=== PATIENT | female | born 1980 | race Caucasian/White ===

== ENCOUNTER 2022-03-17 13:01 | Emergency (ER) | payer MEDICAID, SELFPAY ==
[2022-03-17 13:02] VITALS: BP 155/92; PULSE 122; RESP 18; TEMP 36.8; O2SAT 95
--- NOTE | 2022-03-17 13:29 | W.ED.ALCOHOL ---
HPI - Alcohol General: Chief Complaint: Alcohol Stated Complaint: Possible seizure/ETOH withdrawal Time Seen by Provider: 03/17/22 13:10 Source: patient Mode of arrival: EMS Limitations: no limitations History of Present Illness: Patient was transported to our emergency department via EMS from her home. Has been dealing with a spouse who is on hospice and in the last 24 hours. As part of this process of dealing with his impending she has not slept for the past approximately 3 days. She is also a chronic daily alcohol user and does not drink any alcohol for least 24 hours. He states that this morning she just felt overwhelming stress and grief and felt like she needed to go to sleep. Allegedly she was observed to have a shaking episode by family members who became concerned and called EMS. She is aware that she became very sleepy and tired. There was no complaint of or history of loss of bowel or bladder control or intraoral trauma or apnea or preepisode syncope. She states she is never had seizures. She states she is gone through some shakiness with stopping drinking in the past but never had any significant withdrawal symptoms. He states she has been drinking on a continuous daily basis for at least 1 year this episode. She denies any pain or discomfort at this time. She states that she does not take any daily medication other than occasional ibuprofen. She does smoke tobacco. She denies any recent illness fevers chills etc. She has been living with her spouse and her 2 adult children have just recently moved back home who witnessed the episode this morning. She denies other drug use. Denies thoughts of harm to herself or others currently. Her desires to go home. She states that she has been relatively successful in the past and discontinuing drinking on her own with relapses. MD complaint: alcohol withdrawal and alcohol dependence Chronic alcohol use: Yes Recent trauma: No Associated symptoms: Reports seizure-like activity; Deny abdominal pain, nausea, suicidal ideation, syncope or vomiting Review of Systems Const: Denies: fever(s), chills or body aches Eyes: Denies: change in vision ENMT: Denies: throat pain or odynophagia Card: Denies: chest pain, palpitations, syncope or pre-syncope Resp: Denies: dyspnea, productive cough or non-productive cough GI: Denies: abdominal pain, nausea, vomiting or diarrhea : Denies: flank pain, difficulty voiding, dysuria or urinary frequency Musc: Denies: neck pain, back pain, extremity pain or extremity swelling Skin/Breast: Denies: rash or pruritus Neuro: Reports: seizure-like activity; Denies: headache(s), numbness in extremities or weakness in extremities Psych: Reports: sleeping less; Denies: visual hallucinations, auditory hallucinations, suicidal ideation or homicidal ideation Endo: Denies: polyuria or polydipsia Physical Exam Narrative: EXAM NARRATIVE: Patient is alert and interactive and appropriate fashion. Speech is goal-directed. Const: COMMON NORMALS: no acute distress, average body habitus, patient oriented x3 and no limitations GENERAL APPEARANCE: cooperative and comfortable HENMT: COMMON NORMALS: normocephalic, atraumatic, Normal external nose present, Normal nasal mucous membranes and turbinates present, moist oral mucous membranes and oropharynx normal (No evidence of trauma) HEAD & SCALP: normocephalic and atraumatic NOSE: Normal external nose present and Normal nasal mucous membranes and turbinates present Eye: COMMON NORMALS: Equal, round and reactive pupils present, EOMs intact bilaterally, conjunctivae normal and no scleral icterus CONJUNCTIVA: Yes conjunctivae normal PUPIL: Yes Equal, round and reactive pupils present Neck/C-Spine: COMMON NORMALS: full ROM, no lymphadenopathy, supple and No carotid bruits Chest: COMMONS NORMALS: normal inspection of the chest Resp: COMMON NORMALS: normal respiratory effort, No retractions and clear to auscultation bilaterally AUSCULTATION: clear to auscultation bilaterally Cardio: COMMON NORMALS: regular rate, regular rhythm, No murmurs present (Cardio) and Peripheral pulses 2+ throughout RATE: regular rate and tachycardic RHYTHM: regular rhythm PERIPHERAL PULSES: Peripheral pulses 2+ throughout GI: COMMON NORMALS: Normal to inspection, nondistended, normoactive bowel sounds present, Soft to palpation and non-tender PALPATION: Yes Soft to palpation : COMMON NORMALS: Yes no CVA tenderness BLADDER/KIDNEY EXAM: Yes no CVA tenderness Back/Pelvis: COMMON NORMALS: no CVA tenderness, thoracic and lumbar spine normal to inspection, no thoracic nor lumbar tenderness, thoraco-lumbar ROM normal and straight leg raise negative bilaterally Extremity: COMMON NORMALS: normal to inspection, capillary refill normal, no joint enlargement and no calf tenderness Neuro: COMMON NORMALS: patient oriented x3, moves all extremities, no focal motor deficits and no sensory deficits noted SPEECH: speech normal Psych: COMMON NORMALS: mental status grossly normal, Normal thought process present, cooperative, speech normal, denies hallucinations, denies homicidal ideation and denies suicidal ideation SPEECH: Yes normal speech THOUGHT PROCESS: Normal thought process present ATTENTION/CONCENTRATION: Yes attention grossly intact INSIGHT: Good insight present (Psych) Skin: COMMON NORMALS: no rashes or lesions noted, no wounds and turgor normal GENERAL SKIN EXAM: no rashes or lesions noted and turgor normal Course Reevaluation(s): Reevaluation #1: She remained stable. Normal vital signs. Her potassium has been repleted. She is alert awake and desires to be discharged home. She has 2 adult children who are living with her currently. She has plans to continue with her discontinuation of alcohol. I have offered her a course of Librium to help with any of her withdrawal issues and she agreed to that plan. Again she has no thoughts of self-harm or harm to others. Currently clinically stable to be discharged to the care of the family. Return precautions were discussed. Vital Signs: Vital signs: Vital Signs Temperature 98.2 F 03/17/22 13:02 Pulse Rate 122 H 03/17/22 13:02 Respiratory Rate 18 03/17/22 13:02 Blood Pressure 155/92 03/17/22 13:02 Pulse Oximetry 95 03/17/22 13:02 Oxygen Delivery Me thod 03/17/22 13:02 MDM - Alcohol Medical Decision Making Patient with history of heavy alcohol use who presented to the emergency department after sleep deprivation, alcohol discontinuation and the recent loss of her . Concern was that she may have suffered a withdrawal seizure however this is unclear at this time. However she is remained clinically stable other than a borderline low potassium which was repleted in the emergency department. She is being discharged in a stable condition to care of family with a course of Librium to help with her withdrawal symptoms. Emergency medical evaluation complete no ongoing emergency medical condition. Medical Records I reviewed the patient's medical records. Lab Data I reviewed the patient's lab results. : 03/17/22 13:30 03/17/22 13:30 Laboratory Results WBC 6.0 10^3/uL (4.0-10.0) 03/17/22 13:30 RBC 3.95 10^6/uL (4.1-5.3) L 03/17/22 13:30 Hgb 13.0 g/dL (11.5-15.3) 03/17/22 13:30 Hct 39.2 % (37.0-47.0) 03/17/22 13:30 MCV 99.2 fl (81-99) H 03/17/22 13:30 MCH 32.9 pg (28.0-34.0) 03/17/22 13:30 MCHC 33.2 g/dL (30.0-36.0) 03/17/22 13:30 RDW 15.7 % (12.1-15.1) H 03/17/22 13:30 Plt Count 130 10^3/cmm (130-400) 03/17/22 13:30 MPV 10.3 fL (7.4-10.4) 03/17/22 13:30 Neut % (Auto) 81.8 % 03/17/22 13:30 Lymph % (Auto) 8.0 % 03/17/22 13:30 Chambers % (Auto) 6.2 % 03/17/22 13:30 Eos % (Auto) 2.7 % 03/17/22 13:30 Baso % (Auto) 0.8 % 03/17/22 13:30 Neut # (Auto) 4.88 10^3/uL (1.8-7.7) 03/17/22 13:30 Lymph # (Auto) 0.5 10^3/uL (0.8-4.8) L 03/17/22 13:30 Chambers # (Auto) 0.4 10^3/uL (0.2-0.9) 03/17/22 13:30 Eos # (Auto) 0.2 10^3/uL (0.0-0.8) 03/17/22 13:30 Baso # (Auto) 0.1 10^3/uL (0.0-0.1) 03/17/22 13:30 Nucleated RBC % (auto) 0 % 03/17/22 13:30 Nucleated RBCs # 0.0 /100WBC 03/17/22 13:30 Sodium 134 mmol/L (136-145) L 03/17/22 13:30 Potassium 3.1 mmol/L (3.5-5.1) L 03/17/22 13:30 Chloride 95 mmol/L (98-107) L 03/17/22 13:30 Carbon Dioxide 20 mmol/L (22-29) L 03/17/22 13:30 Anion Gap 22.1 (5-19) H 03/17/22 13:30 BUN 5 mg/dL (6-20) L 03/17/22 13:30 Creatinine 0.5 mg/dL (0.5-0.9) 03/17/22 13:30 GFR Calculation 136.0 mL/min (90-130) H 03/17/22 13:30 Glucose 97 mg/dL (65-115) 03/17/22 13:30 Calculated Osmolality 275 mOsm/kg (285-295) L 03/17/22 13:30 Calcium 9.8 mg/dL (8.5-10.5) 03/17/22 13:30 Total Bilirubin 2.4 mg/dL (0.15-1.2) H 03/17/22 13:30 AST 140 U/L (0-32) H 03/17/22 13:30 ALT 68 U/L (0-33) H 03/17/22 13:30 Alkaline Phosphatase 155 U/L (35-105) H 03/17/22 13:30 Total Protein 7.5 g/dL (6.6-8.7) 03/17/22 13:30 Albumin 4.3 g/dL (3.5-5.2) 03/17/22 13:30 Globulin 3.2 g/dL (1.3-4.6) 03/17/22 13:30 Ethyl Alcohol < 10 mg/dL (0-10) 03/17/22 13:30 EKG Data EKG 1: I personally reviewed and interpreted this EKG as follows: Interpretation: Electrocardiogram reveals a ventricular rate of 75 bpm. Normal intervals, normal axis, no acute ST-T wave changes noted. Discharge Plan Discharge Patient Disposition: Home Clinical Impression: Alcohol withdrawal syndrome, Hypokalemia Condition: Stable Prescriptions: New chlordiazepoxide HCl 25 mg capsule 25 mg PO Q6H 5 Days Qty: 20 0RF Discharge Orders: Discharge ED (Routine); Ordered 03/17/22 Ordered By: David Chavarria Discharge Diet: Usual diet Discharge Activity: Increase activity as tolerated Patient Instructions: Alcohol Withdrawal (ED), Opioid Safety, Pain Management Activity Restrictions/Additional Instructions: Do not drink alcohol. Drink at least 2 quarts of water or other sports drinks etc. daily. Take the medications we have prescribed to help with your withdrawal symptoms over the next 5 days. If you have any new, worsening, or other concerning symptoms or problems return to the emergency department immediately. Coding Level of Care Code ED [employer] Monitoring Technician for Ketan Swift Exam Comprehensive
--- NOTE | 2022-03-17 13:38 | ECG_ITS ---
[facility] Test Date: 2022-03-17 Pat Name: Rosalva Neil Department: Room: Gender: Female Video Specialist: : 1980 Requested By: David Chavarria Order Number: [id number] Loya MD: Kiley Wooten M.D. Measurements Intervals [place] Rate: 75 P: 32 IN: 124 QRS: 59 QRSD: 84 T: 45 QT: 408 QTc: 457 Interpretive Statements SINUS RHYTHM No previous ECG available for comparison Electronically Signed On 03-18-2022 5:52:41 CDT by Kiley Wooten M.D. [email or web address]
[2022-03-17 13:45] LABS: Basophils # 0.1 10^3/uL (0.0-0.1); Basophils % 0.8 %; Eosinophils # 0.2 10^3/uL (0.0-0.8); Eosinophils % 2.7 %; Hematocrit 39.2 % (37.0-47.0); Lymphocytes # 0.5 10^3/uL (0.8-4.8); Mean Corpuscular HGB Conc 33.2 g/dL (30.0-36.0); Mean Corpuscular Hemoglobin 32.9 pg (28.0-34.0); Mean Corpuscular Volume 99.2 fl (81-99); Mean Platelet Volume 10.3 fL (7.4-10.4); Monocytes # 0.4 10^3/uL (0.2-0.9); Monocytes % 6.2 %; Neutrophils # 4.88 10^3/uL (1.8-7.7); Neutrophils % 81.8 %; Nucleated Red Blood Cells % 0 %; Platelet Count 130 10^3/cmm (130-400); Red Blood Count 3.95 10^6/uL (4.1-5.3); Red Cell Distribution Width 15.7 % (12.1-15.1)
[2022-03-17] MEDS: sodium chloride 0.9% 1,000 ML 999 ML IV (13:57)
[2022-03-17] MEDS: chlordiazePOXIDE 25 mg Capsule 50 MG PO (13:57)
[2022-03-17 13:58] LABS: Alanine Aminotransferase 68 U/L (0-33); Albumin Level 4.3 g/dL (3.5-5.2); Alkaline Phosphatase 155 U/L (35-105); Aspartate Amino Transferase 140 U/L (0-32); Blood Urea Nitrogen 5 mg/dL (6-20); Calcium 9.8 mg/dL (8.5-10.5); Carbon Dioxide 20 mmol/L (22-29); Chloride 95 mmol/L (98-107); Globulin 3.2 g/dL (1.3-4.6); Glucose 97 mg/dL (65-115); Osmolality Calculated 275 mOsm/kg (285-295); Sodium 134 mmol/L (136-145); Total Bilirubin 2.4 mg/dL (0.15-1.2); Total Protein 7.5 g/dL (6.6-8.7)
[2022-03-17 14:00] VITALS: BP 130/86; PULSE 95; RESP 16; O2SAT 94
[2022-03-17 14:06] LABS: Alcohol Level < 10 mg/dL (0-10); Anion Gap 22.1 (5-19); Potassium 3.1 mmol/L (3.5-5.1)
[2022-03-17 15:00] VITALS: BP 127/81; PULSE 84; RESP 16; O2SAT 95
[2022-03-17] MEDS: potassium bicarb 25 mEq Tablet 50 MEQ PO (15:16)
[2022-03-17 16:00] VITALS: BP 154/98; PULSE 82; RESP 16; O2SAT 96
== END 2022-03-17 16:36 | disposition home or self-care (01) ==
PROVIDERS: Emergency Provider Emergency Medicine
DX: F10.239 Alcohol dependence with withdrawal, unspecified (principal); E87.6 Hypokalemia
CPT/HCPCS: 80053; 80307; 85025; 93005; 96360; 99285; J7030

== ENCOUNTER 2022-03-20 01:20 | Inpatient (IN) | payer OTHER, SELFPAY ==
[2022-03-20] VITALS (7 sets, daily range): BP systolic 134–143; BP diastolic 71–99; PULSE 87–110; RESP 15–18; TEMP 36.4–36.8; O2SAT 93–98; BMI 24.9; BMI 25.0
--- NOTE | 2022-03-20 01:41 | CTR_ITS ---
PROCEDURE INFORMATION: Exam: CT Head Without Contrast Exam date and time: 03/20/2022 2:07 AM Age: 41 years old Clinical indication: Dizziness and other: Visual disturbances, paranoia; Additional info: AMS TECHNIQUE: Imaging protocol: Computed tomography of the head without contrast. Radiation optimization: All CT scans at this facility use at least one of these dose optimization techniques: automated exposure control; mA and/or kV adjustment per patient size (includes targeted exams where dose is matched to clinical indication); or iterative reconstruction. COMPARISON: No relevant prior studies available. RADIATION DOSE METRICS: Total DLP (mGy-cm): 1230.84 FINDINGS: Brain: Mildly prominent brain sulci seen, which is advanced for the patient's age. There are no intracranial masses, mass effect or midline shift. There is no cerebral edema. There is no subarachnoid hemorrhage. There are no intra-or extra-axial fluid collections, intraventricular or intraparenchymal hemorrhage. No definite areas of low attenuation or avila-white matter junction obscuration seen on the noncontrast CT to suggest a subacute stroke. Cerebral ventricles: The lateral, third and fourth ventricles appear unremarkable. The suprasellar and basilar cisterns appear unremarkable. Paranasal sinuses: [id number] right maxillary sinus mucosal thickening is seen, consistent with sinus disease. Mild rightward deviation of the midline nasal septum is seen. Mastoid air cells: The visualized mastoids are unremarkable. Orbital cavities: The visualized orbits are unremarkable. Bones/joints: No definite acute osseous or skull abnormalities seen. Soft tissues: Unremarkable. Notes: If there is further clinical concern for intracranial pathology, MRI of the brain may be performed for further assessment. CT/CT head wo con* [id number] IMPRESSION: No acute intracranial abnormality seen on the noncontrast CT.
--- NOTE | 2022-03-20 02:21 | ED.C_ITS ---
Documented by User: Archie Marie MD 03/23/22 18:56 HPI - Psych General: Chief Complaint: Psychiatric Symptoms Stated Complaint: MHE, seeing things Time Seen by Provider: 03/20/22 01:47 Source: patient and family Mode of arrival: ambulatory Limitations: no limitations History of Present Illness: 41-year-old female states that over the last 2 to 3 days she has been having hallucinations feeling extremely paranoid. She states she feels like people been following her and she has been seeing things in the shadows. She has been under a lot of stress recently her re cently . She is has a history of alcoholism states she has not had a drink in 4 to 5 days. She denies any suicidal or homicidal ideations. Associated symptoms: Reports visual hallucinations Review of Systems Const: Denies: fever(s), chills, body aches or change in appetite Eyes: Denies: blurry vision or eye discomfort ENMT: Denies: throat pain or dental pain Card: Denies: chest pain Resp: Denies: dyspnea GI: Denies: abdominal pain, nausea, vomiting or diarrhea : Denies: dysuria Musc: Denies: neck pain or back pain Skin/Breast: Denies: rash Neuro: Denies: headache(s) Psych: Reports: paranoia and visual hallucinations Wilman/Lymph: Denies: easy bruising All/Imm: Denies: urticaria PFSH ED PFSH: Medical History Alcohol abuse Social History (Updated 03/20/22 @ 02:22 by Archie Marie MD) Alcohol intake: current Physical Exam Const: COMMON NORMALS: patient oriented x3 HENMT: COMMON NORMALS: normocephalic and atraumatic HEAD & SCALP: normocephalic and atraumatic Eye: COMMON NORMALS: Equal, round and reactive pupils present and EOMs intact bilaterally PUPIL: Yes Equal, round and reactive pupils present Neck/C-Spine: COMMON NORMALS: full ROM and supple Chest: COMMONS NORMALS: normal inspection of the chest and normal palpation of entire chest wall Resp: COMMON NORMALS: normal respiratory effort, No retractions, No use of accessory muscles and clear to auscultation bilaterally AUSCULTATION: clear to auscultation bilaterally Cardio: COMMON NORMALS: regular rate, regular rhythm and No murmurs present (Cardio) RATE: regular rate RHYTHM: regular rhythm GI: COMMON NORMALS: Normal to inspection, nondistended, normoactive bowel sounds present, Soft to palpation, non-tender and no masses PALPATION: Yes Soft to palpation Extremity: COMMON NORMALS: normal to inspection and full ROM Neuro: COMMON NORMALS: patient oriented x3, moves all extremities and no focal motor deficits Psych: COMMON NORMALS: mental status grossly normal and cooperative SPEECH: Yes rapid MOOD & AFFECT: Yes elevated mood THOUGHT CONTENT: Yes Hallucination(s) present Skin: COMMON NORMALS: no rashes or lesions noted and no wounds GENERAL SKIN EXAM: no rashes or lesions noted Course Vital Signs: Vital signs: Vital Signs Temperature 98.4 F 03/24/22 13:47 Pulse Rate 61 03/24/22 13:47 Respiratory Rate 14 03/24/22 13:47 Blood Pressure 135/87 03/24/22 13:47 Pulse Oximetry 91 03/24/22 13:47 Oxygen Delivery Me thod 03/24/22 06:00 MDM - Psych Medical Decision Making Patient presents here with acute psychosis patient placed on a 96-hour hold patient care turned over to Dr. Amin seeking placement. Lab Data : 03/20/22 02:18 03/20/22 02:[address] 03/20/22 01:41 IMPRESSION: No acute intracranial abnormality seen on the noncontrast CT. Laboratory Results WBC 5.2 10^3/uL (4.0-10.0) 03/20/22 02:18 RBC 3.59 10^6/uL (4.1-5.3) L 03/20/22 02:18 Hgb 12.0 g/dL (11.5-15.3) 03/20/22 02:18 Hct 36.1 % (37.0-47.0) L 03/20/22 02:18 MCV 100.6 fl (81-99) H 03/20/22 02:18 MCH 33.4 pg (28.0-34.0) 03/20/22 02:18 MCHC 33.2 g/dL (30.0-36.0) 03/20/22 02:18 RDW 15.1 % (12.1-15.1) 03/20/22 02:18 Plt Count 114 10^3/cmm (130-400) L 03/20/22 02:18 MPV 10.7 fL (7.4-10.4) H 03/20/22 02:18 Neut % (Auto) 67.6 % 03/20/22 02:18 Lymph % (Auto) 22.3 % 03/20/22 02:18 [place] % (Auto) 8.5 % 03/20/22 02:18 Eos % (Auto) 0.8 % 03/20/22 02:18 Baso % (Auto) 0.6 % 03/20/22 02:18 Neut # (Auto) 3.48 10^3/uL (1.8-7.7) 03/20/22 02:18 Lymph # (Auto) 1.2 10^3/uL (0.8-4.8) 03/20/22 02:18 [place] # (Auto) 0.4 10^3/uL (0.2-0.9) 03/20/22 02:18 Eos # (Auto) 0.0 10^3/uL (0.0-0.8) 03/20/22 02:18 Baso # (Auto) 0.0 10^3/uL (0.0-0.1) 03/20/22 02:18 Nucleated RBC % (auto) 0 % 03/20/22 02:18 Nucleated RBCs # 0.0 /100WBC 03/20/22 02:18 Sodium 139 mmol/L (136-145) 03/20/22 02:18 Potassium 3.1 mmol/L (3.5-5.1) L 03/20/22 02:18 Chloride 98 mmol/L (98-107) 03/20/22 02:18 Carbon Dioxide 24 mmol/L (22-29) 03/20/22 02:18 Anion Gap 20.1 (5-19) H 03/20/22 02:18 BUN 11 mg/dL (6-20) 03/20/22 02:18 Creatinine 0.5 mg/dL (0.5-0.9) 03/20/22 02:18 GFR Calculation 136.0 mL/min (90-130) H 03/20/22 02:18 Glucose 83 mg/dL (65-115) 03/20/22 02:18 Calculated Osmolality 287 mOsm/kg (285-295) 03/20/22 02:18 Calcium 10.1 mg/dL (8.5-10.5) 03/20/22 02:18 Total Bilirubin 1.2 mg/dL (0.15-1.2) 03/20/22 02:18 AST 135 U/L (0-32) H 03/20/22 02:18 ALT 82 U/L (0-33) H 03/20/22 02:18 Alkaline Phosphatase 131 U/L (35-105) H 03/20/22 02:18 Total Protein 7.6 g/dL (6.6-8.7) 03/20/22 02:18 Albumin 4.3 g/dL (3.5-5.2) 03/20/22 02:18 Globulin 3.3 g/dL (1.3-4.6) 03/20/22 02:18 TSH 2.29 uIU/mL (0.27-4.20) 03/20/22 02:18 HCG, Qual Negative (Negative) 03/20/22 11:07 Urine Color Dark yellow (Yellow) 03/20/22 06:42 Urine Appearance Cloudy (CLEAR) A 03/20/22 06:42 Urine pH 5 (5-7) 03/20/22 06:42 Ur Specific [place] 1.020 (1.005-1.030) 03/20/22 06:42 Urine Protein 1+ (Negative) H 03/20/22 06:42 Urine Glucose (UA) Norm (Normal) 03/20/22 06:42 Urine Ketones 3+ (Negative) H 03/20/22 06:42 Urine Blood 3+ (Negative) H 03/20/22 06:42 Urine Nitrate Positive (Negative) H 03/20/22 06:42 Urine Bilirubin 1+ (Negative) H 03/20/22 06:42 Urine Urobilinogen 4 mg/dL (Negative) H 03/20/22 06:42 Ur Leukocyte Esterase 1+ (Negative) H 03/20/22 06:42 Urine RBC 5-10 /hpf (0-2) H 03/20/22 06:42 Urine WBC 0-4 /hpf (0-5) H 03/20/22 06:42 Ur Squamous Epith Cells 5-10 /hpf (0-5) H 03/20/22 06:42 Calcium Oxalate Crystal 0-4 /hpf H 03/20/22 06:42 Amorphous Sediment Not Reportable 03/20/22 06:42 Urine Bacteria 3+ /hpf (NONE) H 03/20/22 06:42 Urine Mucus 2+ /hpf 03/20/22 06:42 Salicylates < 0.3 mg/dL (3-10) L 03/20/22 02:18 Urine Opiates Screen Negative ng/mL (Negative) 03/20/22 06:42 Acetaminophen < 5.0 ug/mL (10-30) L 03/20/22 02:18 Ur Barbiturates Screen Negative ng/mL (Negative) 03/20/22 06:42 Ur Phencyclidine Scrn Negative ng/mL (Negative) 03/20/22 06:42 Ur Amphetamines Screen Positive ng/mL (Negative) H 03/20/22 06:42 U Benzodiazepines Scrn Positive ng/mL (Negative) H 03/20/22 06:42 Urine Cocaine Screen Negative ng/mL (Negative) 03/20/22 06:42 U Marijuana (THC) Screen Negative ng/mL (Negative) 03/20/22 06:42 Ethyl Alcohol < 10 mg/dL (0-10) 03/20/22 02:18 SARS-CoV-2 Ag (Rapid) negative (Negative) 03/20/22 06:42 Discharge Plan Discharge Patient Disposition: Admitted As Inpatient Admit Provider: Mike Cisneros Clinical Impression: Acute psychosis Condition: Stable Discharge Diet: Advance as tolerated Discharge Activity: Resume usual activity Sign Out Sign Out Data: Patient Sign Out occurred on 03/20/22 at 06:06. Patient's care was discussed, and care was transferred from to Hernán Amin DO. Coding Level of Care Code ED Athletic Scout for Chg Fwd Exam Comprehensive Documented by User: Hernán Amin DO 03/31/22 07:18 HPI - Psych General: Chief Complaint: Psychiatric Symptoms Stated Complaint: MHE, seeing things Time Seen by Provider: 03/20/22 01:47 [facility] ED PFSH: Medical History Alcohol abuse Social History (Updated 03/20/22 @ 02:22 by Archie Marie MD) Alcohol intake: current Course Vital Signs: Vital signs: Vital Signs Temperature 98.4 F 03/24/22 13:47 Pulse Rate 61 03/24/22 13:47 Respiratory Rate 14 03/24/22 13:47 Blood Pressure 135/87 03/24/22 13:47 Pulse Oximetry 91 03/24/22 13:47 Oxygen Delivery Me thod 03/24/22 06:00 MDM - Psych Medical Decision Making Patient presents here with acute psychosis patient placed on a 96-hour hold patient care turned over to Dr. Amin seeking placement. Care assumed at change of shift. We were able to get a bed available at our facility for patient care discussed with Dr. Cisneros orders written patient admitted to our facility. Medical Records I reviewed the patient's medical records. Lab Data I reviewed the patient's lab results. : 03/20/22 02:18 03/20/22 02:[address] 03/20/22 01:41 IMPRESSION: No acute intracranial abnormality seen on the noncontrast CT. Laboratory Results WBC 5.2 10^3/uL (4.0-10.0) 03/20/22 02:18 RBC 3.59 10^6/uL (4.1-5.3) L 03/20/22 02:18 Hgb 12.0 g/dL (11.5-15.3) 03/20/22 02:18 Hct 36.1 % (37.0-47.0) L 03/20/22 02:18 MCV 100.6 fl (81-99) H 03/20/22 02:18 MCH 33.4 pg (28.0-34.0) 03/20/22 02:18 MCHC 33.2 g/dL (30.0-36.0) 03/20/22 02:18 RDW 15.1 % (12.1-15.1) 03/20/22 02:18 Plt Count 114 10^3/cmm (130-400) L 03/20/22 02:18 MPV 10.7 fL (7.4-10.4) H 03/20/22 02:18 Neut % (Auto) 67.6 % 03/20/22 02:18 Lymph % (Auto) 22.3 % 03/20/22 02:18 [place] % (Auto) 8.5 % 03/20/22 02:18 Eos % (Auto) 0.8 % 03/20/22 02:18 Baso % (Auto) 0.6 % 03/20/22 02:18 Neut # (Auto) 3.48 10^3/uL (1.8-7.7) 03/20/22 02:18 Lymph # (Auto) 1.2 10^3/uL (0.8-4.8) 03/20/22 02:18 [place] # (Auto) 0.4 10^3/uL (0.2-0.9) 03/20/22 02:18 Eos # (Auto) 0.0 10^3/uL (0.0-0.8) 03/20/22 02:18 Baso # (Auto) 0.0 10^3/uL (0.0-0.1) 03/20/22 02:18 Nucleated RBC % (auto) 0 % 03/20/22 02:18 Nucleated RBCs # 0.0 /100WBC 03/20/22 02:18 Sodium 139 mmol/L (136-145) 03/20/22 02:18 Potassium 3.1 mmol/L (3.5-5.1) L 03/20/22 02:18 Chloride 98 mmol/L (98-107) 03/20/22 02:18 Carbon Dioxide 24 mmol/L (22-29) 03/20/22 02:18 Anion Gap 20.1 (5-19) H 03/20/22 02:18 BUN 11 mg/dL (6-20) 03/20/22 02:18 Creatinine 0.5 mg/dL (0.5-0.9) 03/20/22 02:18 GFR Calculation 136.0 mL/min (90-130) H 03/20/22 02:18 Glucose 83 mg/dL (65-115) 03/20/22 02:18 Calculated Osmolality 287 mOsm/kg (285-295) 03/20/22 02:18 Calcium 10.1 mg/dL (8.5-10.5) 03/20/22 02:18 Total Bilirubin 1.2 mg/dL (0.15-1.2) 03/20/22 02:18 AST 135 U/L (0-32) H 03/20/22 02:18 ALT 82 U/L (0-33) H 03/20/22 02:18 Alkaline Phosphatase 131 U/L (35-105) H 03/20/22 02:18 Total Protein 7.6 g/dL (6.6-8.7) 03/20/22 02:18 Albumin 4.3 g/dL (3.5-5.2) 03/20/22 02:18 Globulin 3.3 g/dL (1.3-4.6) 03/20/22 02:18 TSH 2.29 uIU/mL (0.27-4.20) 03/20/22 02:18 HCG, Qual Negative (Negative) 03/20/22 11:07 Urine Color Dark yellow (Yellow) 03/20/22 06:42 Urine Appearance Cloudy (CLEAR) A 03/20/22 06:42 Urine pH 5 (5-7) 03/20/22 06:42 Ur Specific [place] 1.020 (1.005-1.030) 03/20/22 06:42 Urine Protein 1+ (Negative) H 03/20/22 06:42 Urine Glucose (UA) Norm (Normal) 03/20/22 06:42 Urine Ketones 3+ (Negative) H 03/20/22 06:42 Urine Blood 3+ (Negative) H 03/20/22 06:42 Urine Nitrate Positive (Negative) H 03/20/22 06:42 Urine Bilirubin 1+ (Negative) H 03/20/22 06:42 Urine Urobilinogen 4 mg/dL (Negative) H 03/20/22 06:42 Ur Leukocyte Esterase 1+ (Negative) H 03/20/22 06:42 Urine RBC 5-10 /hpf (0-2) H 03/20/22 06:42 Urine WBC 0-4 /hpf (0-5) H 03/20/22 06:42 Ur Squamous Epith Cells 5-10 /hpf (0-5) H 03/20/22 06:42 Calcium Oxalate Crystal 0-4 /hpf H 03/20/22 06:42 Amorphous Sediment Not Reportable 03/20/22 06:42 Urine Bacteria 3+ /hpf (NONE) H 03/20/22 06:42 Urine Mucus 2+ /hpf 03/20/22 06:42 Salicylates < 0.3 mg/dL (3-10) L 03/20/22 02:18 Urine Opiates Screen Negative ng/mL (Negative) 03/20/22 06:42 Acetaminophen < 5.0 ug/mL (10-30) L 03/20/22 02:18 Ur Barbiturates Screen Negative ng/mL (Negative) 03/20/22 06:42 Ur Phencyclidine Scrn Negative ng/mL (Negative) 03/20/22 06:42 Ur Amphetamines Screen Positive ng/mL (Negative) H 03/20/22 06:42 U Benzodiazepines Scrn Positive ng/mL (Negative) H 03/20/22 06:42 Urine Cocaine Screen Negative ng/mL (Negative) 03/20/22 06:42 U Marijuana (THC) Screen Negative ng/mL (Negative) 03/20/22 06:42 Ethyl Alcohol < 10 mg/dL (0-10) 03/20/22 02:18 SARS-CoV-2 Ag (Rapid) negative (Negative) 03/20/22 06:42 Discharge Plan Discharge Patient Disposition: Admitted As Inpatient Admit Provider: Mike Cisneros Clinical Impression: Acute psychosis Condition: Stable Discharge Diet: Advance as tolerated Discharge Activity: Resume usual activity Sign Out Sign Out Data: Patient Sign Out occurred on 03/20/22 at 06:06. Patient's care was discussed, and care was transferred from to Hernán Amin DO. Coding Level of Care Code ED Athletic Scout for Ketan Fwenrique Exam Comprehensive
[2022-03-20 02:23] LABS: Basophils % 0.6 %; Eosinophils % 0.8 %; Hematocrit 36.1 % (37.0-47.0); Lymphocytes # 1.2 10^3/uL (0.8-4.8); Lymphocytes % 22.3 %; Mean Corpuscular HGB Conc 33.2 g/dL (30.0-36.0); Mean Corpuscular Hemoglobin 33.4 pg (28.0-34.0); Mean Corpuscular Volume 100.6 fl (81-99); Mean Platelet Volume 10.7 fL (7.4-10.4); Monocytes # 0.4 10^3/uL (0.2-0.9); Monocytes % 8.5 %; Neutrophils # 3.48 10^3/uL (1.8-7.7); Neutrophils % 67.6 %; Nucleated Red Blood Cells % 0 %; Platelet Count 114 10^3/cmm (130-400); Red Blood Count 3.59 10^6/uL (4.1-5.3); Red Cell Distribution Width 15.1 % (12.1-15.1); White Blood Count 5.2 10^3/uL (4.0-10.0)
[2022-03-20 02:49] LABS: Alanine Aminotransferase 82 U/L (0-33); Albumin Level 4.3 g/dL (3.5-5.2); Alkaline Phosphatase 131 U/L (35-105); Anion Gap 20.1 (5-19); Aspartate Amino Transferase 135 U/L (0-32); Blood Urea Nitrogen 11 mg/dL (6-20); Calcium 10.1 mg/dL (8.5-10.5); Carbon Dioxide 24 mmol/L (22-29); Chloride 98 mmol/L (98-107); Globulin 3.3 g/dL (1.3-4.6); Glucose 83 mg/dL (65-115); Osmolality Calculated 287 mOsm/kg (285-295); Potassium 3.1 mmol/L (3.5-5.1); Sodium 139 mmol/L (136-145); Total Bilirubin 1.2 mg/dL (0.15-1.2); Total Protein 7.6 g/dL (6.6-8.7)
[2022-03-20 02:51] LABS: Acetaminophen < 5.0 ug/mL (10-30); Alcohol Level < 10 mg/dL (0-10); Salicylate < 0.3 mg/dL (3-10)
[2022-03-20 07:11] LABS: Amphetamines Screen Urine Positive (Negative); Barbiturates Screen Urine Negative (Negative); Benzodiazepines Screen Urine Positive (Negative); Cocaine Screen Urine Negative (Negative); Opiate Screen Urine Negative (Negative); PCP Screen Urine Negative (Negative); THC Screen Urine Negative (Negative); Urine Appearance Cloudy (CLEAR); Urine Color Dark Yellow (Yellow); pH Urine 5 (5-7)
[2022-03-20 07:12] LABS: Add Urine Microscopic? YES; Bilirubin Urine 1+ (Negative); Blood Urine 3+ (Negative); Glucose Urine UA Norm (Normal); Ketones Urine 3+ (Negative); Leukocyte Esterase Urine 1+ (Negative); Nitrate Urine Positive (Negative); Protein Urine 1+ (Negative); Urobilinogen Urine 4 mg/dL (Negative)
[2022-03-20 07:15] LABS: WBC Urine 0-4 /hpf (0-5)
[2022-03-20 07:16] LABS: Add Urine Culture? Yes; Bacteria Urine 3+ /hpf; Calcium Oxalate Crystals Urine 0-4 /hpf; Mucus Urine 2+ /hpf
[2022-03-20 07:21] LABS: SARS Covid-2 Antigen negative (Negative)
--- NOTE | 2022-03-20 10:09 | ECG_ITS ---
[facility] Test Date: 2022-03-20 Pat Name: Rosalva Neil Department: Room: Gender: Female Bunghole Borer: : 1980 Requested By: Hernán Crum Order Number: [id number] Shalini MD: Nadja Fair M.D. Measurements Intervals [place] Rate: 86 P: 72 MS: 122 QRS: 58 QRSD: 86 T: 48 QT: 422 QTc: 507 Interpretive Statements SINUS RHYTHM POSSIBLE LEFT ATRIAL ENLARGEMENT [-0.1mV P-WAVE IN V1/V2] Compared to ECG 03/17/2022 13:45:28 No significant changes Electronically Signed On 03-20-2022 16:50:00 CDT by Nadja Fair M.D. [id number]
[2022-03-20 10:40] LABS: Thyroid Stimulating Hormone 2.29 uIU/mL (0.27-4.20)
[2022-03-20 11:19] LABS: HCG Qualitative Urine. Negative (Negative)
--- NOTE | 2022-03-20 12:52 | PC.NURSE ---
pt daughter called and stated pt had been calling and texting her and was very upset. pt had already had belongings taken so dayshift was unaware she had phone. pt states she did not know she was on a 96 hr hold and she was not staying. I was able to calm pt and have her give her phone to be put with belongings. security was present
--- NOTE | 2022-03-20 17:35 | PC.NURSE ---
Admission Assessment Patient states she came into the ER for help because she was crying a lot and her kids kept telling her to come to the hospital, which she did. She stated she told the nurse's and doctor in the ER about dreams she was having about her coming back to life. Her last week and she states she was supposed to pick his ashes up today. She states she works at [employer] and is worried about her job and being evicted because of her lack of monetary gain since she hasn't been to work in 3 weeks due to her being sick before his . She also states her dad and mom recently . She lives with her kids who are 21 and 17 and her grandchild. Patient says a hospice group is supposed to be coming to her house to talk to her. Patient is denying usage of methamphetamines despite her urine drug screen indicating otherwise. Patient is very tearful and saying, I don't even think I should be here. I just want to go home with my kids.
[2022-03-21 06:00] VITALS: BP 143/91; PULSE 75; RESP 16; TEMP 36.7; O2SAT 96
--- NOTE | 2022-03-21 08:27 | W.PM.NPUH&PS ---
Providers/Chief Complaint Admitting Physician: Mike Cisneros MD Chief Complaint: MHE, seeing things HPI NPU History of Present Illness Rosalva Neil is a 41 year old female who presented emergency department following report: Chief Complaint: Psychiatric Symptoms Stated Complaint: MHE, seeing things Time Seen by Provider: 03/20/22 01:47 Source: patient and family Mode of arrival: ambulatory Limitations: no limitations History of Present Illness: 41-year-old female states that over the last 2 to 3 days she has been having hallucinations feeling extremely paranoid. She states she feels like people been following her and she has been seeing things in the shadows. She has been under a lot of stress recently her recently . She is has a history of alcoholism states she has not had a drink in 4 to 5 days. She denies any suicidal or homicidal ideations. Associated symptoms: Reports visual hallucinations. The patient was admitted to the neuropsychiatric unit for definitive treatment of those issues. She is not currently taking any psychiatric medications. She presents today reporting she has had a lot of loss in her life and been having odd dreams. She has never been psychiatrically hospitalized, has not received outpatient services and has not been on psychiatric medications. She reports a pack of cigarettes a day, denies alcohol for the past 5 days but had been drinking heavily beforehand for which she recently started a medication, denies marijuana or any other illicit drug use though she was positive for methamphetamine which she endorses may be because she used another person?s puffer. She denies drug and alcohol treatment, DUIs or other drug and alcohol related charges. She reports she had been given medication in the hospital for drinking but has not stopped drinking for several days in years. Her had passed March 10 and had been since they were 17 years old for 22 years due to liver failure and pneumonia which caused fluid build up. She was supposed to bead picker her ?s ashes yesterday. Psychiatric History: As above. Substance Abuse History: As above. Family History: She reports autism on her father?s side of the family and depression on her mother?s side of the family, addiction issues on both sides of the family and denies any suicide attempts or completions on either side of the family. Developmental History: She denies any or issues, learned to walk and talk and met her developmental milestones on time and reports receiving learning support and special education classes for reading but denies speech therapy or emotional support Psychosocial History: She reports her parents were together when she was born and remained together. She has 2 younger brothers and a younger sister who are products of the same union. Neither of her parents have any additional children. She reports her childhood was good though her dad worked and her mother stayed home. She denies any emotional, physical or sexual abuse during her childhood. She denies CYS involvement. She denies any traumatic events in her life though she was with her when he . 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 She endorses being heterosexual with her longest relationship being 22 years. She has been twice, once and once, has 2 biological children, has never been in the and denies a shinto belief system. 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 She currently lives in a house with her children and her grandchild. Legal History: She has been to retirement twice, the longest time of which was a weekend. Medical History: She denies any known allergies to medications. She denies any medical issues. She reports she began menstruating around 12 to 13 years old and reports they were somewhat problematic. She delivered her children vaginally. She had her tubes tied. Meds NPU Home Medications Medication Instructions Recorded Confirmed Last Taken Type chlordiazepoxide HCl 25 mg capsule 25 mg PO QID 03/20/22 03/20/22 Unknown History Allergies Allergy/AdvReac Type Severity Reaction Status Date / Time No Known Allergies Allergy Verified 03/20/22 07:26 [facility] NPU PFS: Medical History Alcohol abuse Social History (Updated 03/20/22 @ 02:22 by Archie Marie MD) Alcohol intake: current Mental Status Exam MSE Comments: This is a slender white woman in hospital scrubs with limited grooming but adequate eye contact. No abnormal movements except for mild psychomotor retardation. Cooperative with exam in mild distress. Speech was slightly decreased rate and volume. Mood described as sad, affect is congruent. Thought process, organized. Thought content: patient denies suicidal or homicidal ideation, no delusions reported or noted, and denies any auditory or visual hallucinations. Attention and concentration are intact and memory appeared reliable but none were formally tested. She is alert and oriented three times. Insight and judgment are fair. Impulse control is limited. Vitals/I&O/Wt Last Vital Signs Temp 98.0 F 03/21/22 06:00 Pulse 75 03/21/22 06:00 Resp 16 03/21/22 06:00 BP 143/91 03/21/22 06:00 Pulse Ox 96 03/21/22 06:00 O2 Del Method 03/20/22 16:22 Weight last 48 hrs Weight 74.843 kg Weight 74.389 kg Data NPU : 03/20/22 02:18 03/20/22 02:18 Micro: Microbiology 03/20/22 06:42 Urine Culture - Preliminary Urine,Clean Catch Gram Negative Rods Microbiology 03/20/22 06:42 Urine,Clean Catch Urine Culture - Preliminary Gram Negative Rods A&P Assessment and plan (1) Alcohol withdrawal syndrome: (2) Hypokalemia: (3) Adjustment disorder with mixed disturbance of emotions and conduct: (4) Depression: (5) Bereavement: (6) Alcohol use disorder, severe, dependence: (7) Methamphetamine abuse: Plan This is 41 year old white woman with genetic loading for mental health and addiction issues who presents after the recent loss of her of 22 years reporting she stopped drinking alcohol and was feeling off so she presented to the hospital, denying any need for medications at this time. 1. Continue current medications 2. Encourage individual, group and milieu therapy 3. Continue q-15 minute check for safety 4. Recommend sober living treatment at the highest level of care to which the patient is willing to commit. Involuntary Hold Information 96 Hour Hold: 96 Hour Involuntary Admission: Yes 96 Hour Hold Ending Date: 03/26/22 96 Hour Hold Ending Time: 16:30 Attestations NPU Medical Necessity Statement*: Inpatient hospitalization is medically necessary and the clinically appropriate intervention at this time. We will monitor medications and make changes as indicated. Patient will be in the hospital for over two midnights. Likely length of stay is one to three days. Coding Level of Care Code Acute Utility Sales And Service Manager for Ketan Swift Diagnoses Alcohol withdrawal syndrome F10.939 Hypokalemia E87.6 Adjustment disorder with mixed disturbance of emotions and conduct F43.25 Depression F32.A Bereavement Z63.4 Alcohol use disorder, severe, dependence F10.20 Methamphetamine abuse F15.10
[2022-03-21 14:00] VITALS: BP 123/85; PULSE 84; RESP 20; TEMP 36.7; O2SAT 99
[2022-03-21 20:25] VITALS: BP 143/86; PULSE 73; RESP 16; TEMP 36.3; O2SAT 94
[2022-03-22 06:00] VITALS: BP 134/90; PULSE 80; RESP 18; TEMP 36.7; O2SAT 95
--- NOTE | 2022-03-22 08:47 | P.NPUPN_ITS ---
Subjective NPU Subjective: Patient is today reporting that she wants to discharge. We discussed that she is on a 96-hour hold however concerns existed with the admitting doctor that she was making suicidal statements and possibly being psychotic. She certainly denies that now and does not appear to be having psychosis. We discussed concerns about understanding the significance of her methamphetamine use which she attributes to some clandestine source. We discussed that her Ruba will begin tomorrow and that the treatment team could vet her situation better for safety and that there will be possibility for dis charge tomorrow. Mental Status Exam MSE Comments: This is a slender white woman in hospital scrubs with limited grooming but adequate eye contact. No abnormal movements except for mild psychomotor retardation. Cooperative with exam in mild distress. Speech was slightly decreased rate and volume. Mood described as better, affect is still slightly subdued. Thought process, organized. Thought content: patient denies suicidal or homicidal ideation, no delusions reported or noted, and denies any auditory or visual hallucinations. Attention and concentration are intact and memory appeared reliable but none were formally tested. She is alert and oriented three times. Insight and judgment are fair. Impulse control is limited. Vitals/I&O/Wt Last Vital Signs Temp 98.0 F 03/22/22 06:00 Pulse 80 03/22/22 06:00 Resp 18 03/22/22 06:00 BP 134/90 03/22/22 06:00 Pulse Ox 95 03/22/22 06:00 O2 Del Method 03/22/22 06:00 Weight last 48 hrs Weight 76.113 kg Data NPU : 03/20/22 02:18 03/20/22 02:18 Micro: Microbiology 03/20/22 06:42 Urine Culture - Final Urine,Clean Catch Escherichia coli Microbiology 03/20/22 06:42 Urine,Clean Catch Urine Culture - Final Escherichia coli A&P Assessment and plan (1) Alcohol withdrawal syndrome: (2) Hypokalemia: (3) Adjustment disorder with mixed disturbance of emotions and conduct: (4) Depression: (5) Bereavement: (6) Alcohol use disorder, severe, dependence: (7) Methamphetamine abuse: Plan This is 41 year old white woman with genetic loading for mental health and addiction issues who presents after the recent loss of her of 22 years reporting she stopped drinking alcohol and was feeling off so she presented to the hospital, denying any need for medications at this time. 1. Continue current medications 2. Encourage individual, group and milieu therapy 3. Continue q-15 minute check for safety 4. Recommend sober living treatment at the highest level of care to which the patient is willing to commit. Involuntary Hold Information 96 Hour Hold: 96 Hour Involuntary Admission: Yes 96 Hour Hold Ending Date: 03/26/22 96 Hour Hold Ending Time: 16:30 Attestations NPU Medical Necessity Statement*: Inpatient hospitalization is medically necessary and the clinically appropriate intervention at this time. We will monitor medications and make changes as indicated. Likely length of stay is 1-2 days. 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
[2022-03-22] MEDS: hyDROXYzine 25 mg Capsule 50 MG PO (09:20)
[2022-03-22 13:33] VITALS: BP 126/86; PULSE 95; RESP 17; TEMP 36.6; O2SAT 97
[2022-03-22 21:03] VITALS: BP 144/84; PULSE 74; RESP 16; TEMP 36.6; O2SAT 95
[2022-03-22 22:00] VITALS: BP 144/84; PULSE 74; RESP 16; TEMP 36.6; O2SAT 95
[2022-03-23 06:00] VITALS: BP 139/83; PULSE 66; RESP 18; TEMP 36.4; O2SAT 96
--- NOTE | 2022-03-23 07:56 | PC.NURSE ---
Patient watching tv in day room. Patient denies AH/VH and SI/HI. Patient is pleasant and cooperative this morning. No distress noted.
[2022-03-23 14:00] VITALS: BP 127/80; PULSE 73; RESP 20; TEMP 36.5; O2SAT 97
--- NOTE | 2022-03-23 17:46 | P.NPUPN_ITS ---
Subjective NPU Subjective: Patient is a 41-year-old white female admitted with depression and alcohol abuse who reports that she has been feeling better today. She had reported that her had approximately 1 week ago and that she is motivated for receiving outpatient treatment for alcohol use. She reported no withdrawal symptoms at this time. Patient had reported that she may have made suicidal statements upon admission but did not recall the details. Patient had again requested to be discharged today. Staff notes the patient did not appear to show any evidence of unusual behavior on the milieu. Mental Status Exam MSE Comments: This is a slender white woman in hospital scrubs with limited grooming but adequate eye contact. No abnormal movements except for mild psychomotor retardation. Cooperative with exam in mild distress. Speech was slightly decreased rate and volume. Mood described as better, affect remained subdued. Thought process was linear but superficial. Thought content: patient denies suicidal or homicidal ideation, no delusions reported or noted, and denies any auditory or visual hallucinations. Attention and concentration are intact and memory appeared reliable but none were formally tested. She is alert and oriented three times. Insight and judgment are fair. Impulse control remained guarded. Vitals/I&O/Wt Last Vital Signs Temp 97.7 F 03/23/22 14:00 Pulse 73 03/23/22 14:00 Resp 20 H 03/23/22 14:00 BP 127/80 03/23/22 14:00 Pulse Ox 97 03/23/22 14:00 O2 Del Method 03/23/22 06:00 Weight last 48 hrs Weight 76.113 kg Data NPU : 03/20/22 02:18 03/20/22 02:18 Micro: Microbiology 03/20/22 06:42 Urine Culture - Final Urine,Clean Catch Escherichia coli Microbiology 03/20/22 06:42 Urine,Clean Catch Urine Culture - Final Escherichia coli A&P Assessment and plan (1) Alcohol withdrawal syndrome: (2) Hypokalemia: (3) Adjustment disorder with mixed disturbance of emotions and conduct: (4) Depression: (5) Bereavement: (6) Alcohol use disorder, severe, dependence: (7) Methamphetamine abuse: Plan This is 41 year old white woman with genetic loading for mental health and addiction issues who presents after the recent loss of her of 22 years reporting she stopped drinking alcohol and was feeling off so she presented to the hospital, denying any need for medications at this time. 1. Continue current medications, consider discharge tommorow. 2. Encourage individual, group and milieu therapy 3. Continue q-15 minute check for safety 4. Recommend sober living treatment at the highest level of care to which the patient is willing to commit. Involuntary Hold Information 96 Hour Hold: 96 Hour Involuntary Admission: Yes 96 Hour Hold Ending Date: 03/26/22 96 Hour Hold Ending Time: 16:30 Attestations NPU Medical Necessity Statement*: Inpatient hospitalization is medically necessary and the clinically appropriate intervention at this time. We will monitor medications and make changes as indicated. Likely length of stay is 1-2 days. 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
[2022-03-23 22:00] VITALS: BP 129/84; PULSE 67; RESP 17; TEMP 36.6; O2SAT 96
[2022-03-24 06:00] VITALS: BP 135/87; PULSE 61; RESP 14; TEMP 36.9; O2SAT 91
--- NOTE | 2022-03-24 13:43 | W.PM.NPUDCS ---
Diagnoses at Discharge Discharge Diagnosis (1) Alcohol withdrawal syndrome: Status: Acute (2) Hypokalemia: Status: Acute (3) Adjustment disorder with mixed disturbance of emotions and conduct: Status: Acute (4) Depression: Status: Acute (5) Bereavement: Status: Acute (6) Alcohol use disorder, severe, dependence: Status: Acute (7) Methamphetamine abuse: Status: Acute Reason for Visit Reason for Visit: MHE, seeing things Brief History: Rosalva Neil is a 41 year old female who presented emergency department following report: Chief Complaint: Psychiatric Symptoms Stated Complaint: MHE, seeing things Time Seen by Provider: 03/20/22 01:47 Source: patient and family Mode of arrival: ambulatory Limitations: no limitations History of Present Illness:?? 41-year-old female states that over the last 2 to 3 days she has been having hallucinations feeling extremely paranoid.? She states she feels like people been following her and she has been seeing things in the shadows.? She has been under a lot of stress recently her recently .? She is has a history of alcoholism states she has not had a drink in 4 to 5 days.? She denies any suicidal or homicidal ideations. Associated symptoms: Reports visual hallucinations. The patient was admitted to the neuropsychiatric unit for definitive treatment of those issues. She is not currently taking any psychiatric medications. She presents today reporting she has had a lot of loss in her life and been having odd dreams. She has never been psychiatrically hospitalized, has not received outpatient services and has not been on psychiatric medications. She reports a pack of cigarettes a day, denies alcohol for the past 5 days but had been drinking heavily beforehand for which she recently started a medication, denies marijuana or any other illicit drug use though she was positive for methamphetamine which she endorses may be because she used another person?s puffer. She denies drug and alcohol treatment, DUIs or other drug and alcohol related charges. She reports she had been given medication in the hospital for drinking but has not stopped drinking for several days in years. Her had passed March 10 and had been since they were 17 years old for 22 years due to liver failure and pneumonia which caused fluid build up. 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 Psychiatric History: As above. Substance Abuse History: As above. Family History: She reports autism on her father?s side of the family and depression on her mother?s side of the family, addiction issues on both sides of the family and denies any suicide attempts or completions on either side of the family. Developmental History: She denies any or issues, learned to walk and talk and met her developmental milestones on time and reports receiving learning support and special education classes for reading but denies speech therapy or emotional support Psychosocial History: She reports her parents were together when she was born and remained together. She has 2 younger brothers and a younger sister who are products of the same union. Neither of her parents have any additional children. She reports her childhood was good though her dad worked and her mother stayed home. She denies any emotional, physical or sexual abuse during her childhood. She denies CYS involvement. She denies any traumatic events in her life though she was with her when he . She graduated high school and got her [employer]ODU[employer] license. She endorses being heterosexual with her longest relationship being 22 years. She has been twice, once and once, has 2 biological children, has never been in the and denies a gnosticism belief system. 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 She currently lives in a house with her children and her grandchild. Legal History: She has been to skilled nursing twice, the longest time of which was a weekend. Medical History: She denies any known allergies to medications. She denies any medical issues. She reports she began menstruating around 12 to 13 years old and reports they were somewhat problematic. She delivered her children vaginally. She had her tubes tied. Hospital Course Hospital Course Discharge Summary: During the hospitalization, patient had routine laboratory studies which were within normal limits except for few outliers.? Additionally there was a general medical evaluation which was also within normal limits and revealed no new acute processes. At the time of discharge, lethality was denied and psychosis was resolving.? Mood and anxiety were well managed.? Patient endorsed a plan to avoid all drugs of abuse and follow-up with the aftercare recommendations of the treatment team.? Patient was evaluated and deemed to be absent credible lethality, and had achieved the maximum benefit from an inpatient hospitalization, so was discharged. Involuntary Hold Information 96 Hour Hold: 96 Hour Involuntary Admission: Yes 96 Hour Hold Ending Date: 03/26/22 96 Hour Hold Ending Time: 16:30 Mental Status Exam MSE Comments: This is a slender white woman in hospital scrubs with limited grooming but adequate eye contact. No abnormal movements except for mild psychomotor retardation. Cooperative with exam in mild distress. Speech was normal in regards to rate rhythm and prosody. Mood described as better. affect was brighter.. Thought process was linear, logical and goal-directed. Thought content: patient denies suicidal or homicidal ideation, no delusions reported or noted, and denies any auditory or visual hallucinations. Attention and concentration are intact and memory appeared reliable but none were formally tested. She is alert and oriented three times. Insight and judgment are fair. Impulse control was adequate. Discharge Data Studies Completed and Pending: Completed Studies During Hospitalization Category Date Time Status CT head wo con* [id number] Stat Cat Scan 03/20/22 01:41 Completed Radiology Impressions Head CT 03/20/22 01:41 IMPRESSION: No acute intracranial abnormality seen on the noncontrast CT. Laboratory Results WBC 5.2 10^3/uL (4.0- 10.0) 03/20/22 02:18 RBC 3.59 10^6/uL (4.1 -5.3) L 03/20/22 02:18 Hgb 12.0 g/dL (11.5-1 5.3) 03/20/22 02:18 Hct 36.1 % (37.0-47.0 ) L 03/20/22 02:18 MCV 100.6 fl (81-99) H 03/20/22 02:18 MCH 33.4 pg (28.0-34. 0) 03/20/22 02:18 MCHC 33.2 g/dL (30.0-3 6.0) 03/20/22 02:18 RDW 15.1 % (12.1-15.1 ) 03/20/22 02:18 Plt Count 114 10^3/cmm (130 -400) L 03/20/22 02:18 MPV 10.7 fL (7.4-10.4 ) H 03/20/22 02:18 Neut % (Auto) 67.6 % 03/20/22 02:18 Lymph % (Auto) 22.3 % 03/20/22 02:18 [place] % (Auto) 8.5 % 03/20/22 02:18 Eos % (Auto) 0.8 % 03/20/22 02:18 Baso % (Auto) 0.6 % 03/20/22 02:18 Neut # (Auto) 3.48 10^3/uL (1.8 -7.7) 03/20/22 02:18 Lymph # (Auto) 1.2 10^3/uL (0.8- 4.8) 03/20/22 02:18 [place] # (Auto) 0.4 10^3/uL (0.2- 0.9) 03/20/22 02:18 Eos # (Auto) 0.0 10^3/uL (0.0- 0.8) 03/20/22 02:18 Baso # (Auto) 0.0 10^3/uL (0.0- 0.1) 03/20/22 02:18 Nucleated RBC % (a uto) 0 % 03/20/22 02:18 Nucleated RBCs # 0.0 /100WBC 03/20/22 02:18 Sodium 139 mmol/L (136-1 45) 03/20/22 02:18 Potassium 3.1 mmol/L (3.5-5 .1) L 03/20/22 02:18 Chloride 98 mmol/L (98-107 ) 03/20/22 02:18 Carbon Dioxide 24 mmol/L (22-29) 03/20/22 02:18 Anion Gap 20.1 (5-19) H 03/20/22 02:18 BUN 11 mg/dL (6-20) 03/20/22 02:18 Creatinine 0.5 mg/dL (0.5-0. 9) 03/20/22 02:18 GFR Calculation 136.0 mL/min (90- 130) H 03/20/22 02:18 Glucose 83 mg/dL (65-115) 03/20/22 02:18 Calculated Osmolal ity 287 mOsm/kg (285- 295) 03/20/22 02:18 Calcium 10.1 mg/dL (8.5-1 0.5) 03/20/22 02:18 Total Bilirubin 1.2 mg/dL (0.15-1 .2) 03/20/22 02:18 AST 135 U/L (0-32) H 03/20/22 02:18 ALT 82 U/L (0-33) H 03/20/22 02:18 Alkaline Phosphata se 131 U/L (35-105) H 03/20/22 02:18 Total Protein 7.6 g/dL (6.6-8.7 ) 03/20/22 02:18 Albumin 4.3 g/dL (3.5-5.2 ) 03/20/22 02:18 Globulin 3.3 g/dL (1.3-4.6 ) 03/20/22 02:18 TSH 2.29 uIU/mL (0.27 -4.20) 03/20/22 02:18 HCG, Qual Negative (Negati ve) 03/20/22 11:07 Urine Color Dark yellow (Yel low) 03/20/22 06:42 Urine Appearance Cloudy (CLEAR) A 03/20/22 06:42 Urine pH 5 (5-7) 03/20/22 06:42 Ur Specific Gravit y 1.020 (1.005-1.0 30) 03/20/22 06:42 Urine Protein 1+ (Negative) H 03/20/22 06:42 Urine Glucose (UA) Norm (Normal) 03/20/22 06:42 Urine Ketones 3+ (Negative) H 03/20/22 06:42 Urine Blood 3+ (Negative) H 03/20/22 06:42 Urine Nitrate Positive (Negati ve) H 03/20/22 06:42 Urine Bilirubin 1+ (Negative) H 03/20/22 06:42 Urine Urobilinogen 4 mg/dL (Negative ) H 03/20/22 06:42 Ur Leukocyte Donna ase 1+ (Negative) H 03/20/22 06:42 Urine RBC 5-10 /hpf (0-2) H 03/20/22 06:42 Urine WBC 0-4 /hpf (0-5) H 03/20/22 06:42 Ur Squamous Epith Cells 5-10 /hpf (0-5) H 03/20/22 06:42 Calcium Oxalate Cr ystal 0-4 /hpf H 03/20/22 06:42 Amorphous Sediment Not Reportable 03/20/22 06:42 Urine Bacteria 3+ /hpf (NONE) H 03/20/22 06:42 Urine Mucus 2+ /hpf 03/20/22 06:42 Salicylates < 0.3 mg/dL (3-10 ) L 03/20/22 02:18 Urine Opiates Scre en Negative ng/mL (N egative) 03/20/22 06:42 Acetaminophen < 5.0 ug/mL (10-3 0) L 03/20/22 02:18 Ur Barbiturates Sc reen Negative ng/mL (N egative) 03/20/22 06:42 Ur Phencyclidine S crn Negative ng/mL (N egative) 03/20/22 06:42 Ur Amphetamines Sc reen Positive ng/mL (N egative) H 03/20/22 06:42 U Benzodiazepines Scrn Positive ng/mL (N egative) H 03/20/22 06:42 Urine Cocaine Scre en Negative ng/mL (N egative) 03/20/22 06:42 U Marijuana (THC) Screen Negative ng/mL (N egative) 03/20/22 06:42 Ethyl Alcohol < 10 mg/dL (0-10) 03/20/22 02:18 SARS-CoV-2 Ag (Rap id) negative (Negati ve) 03/20/22 06:42 Vitals: Last Vital Signs Temp 98.4 F 03/24/22 06:00 Pulse 61 03/24/22 06:00 Resp 14 03/24/22 06:00 BP 135/87 03/24/22 06:00 Pulse Ox 91 03/24/22 06:00 O2 Del Method 03/24/22 06:00 Discharge Plan Discharge Patient Disposition: Home Condition: Stable Prescriptions: Continued chlordiazepoxide HCl 25 mg capsule 25 mg PO QID Rx Instructions: Rx is for 4 day supply filled on 03/18/22 finished on 03/22/22. Discharge Orders: Discharge Order (Routine); Ordered 03/24/22 Ordered By: Damir Yeh Referrals: [facility] [Other] - 4-7 days (Application has been sent. Call to check on admission date. ) [facility]-Dr.Leslie Dominguez [Other] - 03/25/22 3:00 pm (Follow up) [facility] [Outside] - 1-3 days (Walk in status Wednesday through Wednesday form 7:30 am to 3:30 pm. Application has been sent to [facility]. ) Discharge Diet: Advance as tolerated Discharge Activity: Resume usual activity Patient Instructions: Opioid Safety Discharge Attestations NPU Time Spent in Discharge Care*: less than 30 min Specific Discharge Activities: Specific discharge activities: educating patient, educating and/or supporting family/caregiver, documenting/other paperwork and evaluating patient/reviewing data Coding Level of Care Code Established Pt Acute Chg FW DC note Patient Type Established History Problem Focused Exam Problem Focused Medical Decision Making Straight Forward Diagnoses Alcohol withdrawal syndrome F10.939 Hypokalemia E87.6 Adjustment disorder with mixed disturbance of emotions and conduct F43.25 Depression F32.A Bereavement Z63.4 Alcohol use disorder, severe, dependence F10.20 Methamphetamine abuse F15.10
[2022-03-24 13:47] VITALS: BP 135/87; PULSE 61; RESP 14; TEMP 36.9; O2SAT 91
== END 2022-03-24 14:00 | disposition home or self-care (01) | DRG 882 ==
LOC: ER 06:06 → NP 15:49
PROVIDERS: Emergency Medicine; Admitting Provider Psychiatry & Neurology Psychiatry; Emergency Provider Family Medicine; Visit Provider Psychiatry & Neurology Psychiatry
DX: F43.25 Adjustment disorder with mixed disturbance of emotions and conduct (principal); F10.20 Alcohol dependence, uncomplicated; F17.210 Nicotine dependence, cigarettes, uncomplicated; Z81.8 Family history of other mental and behavioral disorders; E87.6 Hypokalemia; F32.A Depression, unspecified; Z63.4 Disappearance and death of family member; F15.10 Other stimulant abuse, uncomplicated
CPT/HCPCS: 70450; 80053; 80306; 80307; 81001; 81025; 84443; 85025; 87077; 87086; 87186; 87426; 93005; 97165; 99285